=== PATIENT | female | born 1945 | race Native Hawaiian/Other Pacific Islander ===

== ENCOUNTER 2019-09-06 14:04 | Emergency (ER) | payer OTHER ==
[~2019-09-06] VITALS: Ht 188 cm; Wt 84.4 kg
[2019-09-06 14:22] VITALS: BP 164/129; TEMP 97.7
[2019-09-06 14:30] LABS: PLATELET COUNT 244 K/uL (152-353)
[2019-09-06 14:38] LABS: POTASSIUM 3.5 mmol/L (3.6-5.2)
[2019-09-06] MEDS ORDERED: TRIA0.1C5 TOP (16:03)
[2019-09-06] MEDS ORDERED: METFORMIN ER1000 MG PO (16:04)
[2019-09-06] MEDS ORDERED: RISP0.5T2 PO (16:06)
[2019-09-06] MEDS ORDERED: TRIHEXYPHEN2 MG PO (16:07)
[2019-09-06] MEDS ORDERED: [UNRECOGNIZED DRUG - OTHER] NAS (16:08)
[2019-09-06] MEDS ORDERED: LORA10TA3 PO (16:08)
[2019-09-06] MEDS ORDERED: ZESTRIL40 MG PO (16:19)
== END 2019-09-06 15:02 | disposition still patient (30) ==
LOC: ED 14:04
PROVIDERS: Hospitalist
DX: F03.91 Unspecified dementia, unspecified severity, with behavioral disturbance (principal); Z03.818 Encounter for observation for suspected exposure to other biological agents ruled out; Z04.6 Encounter for general psychiatric examination, requested by authority
CPT/HCPCS: 80053; 81000; 85027; 87635; 93005; 99283; 99285; U0002